=== PATIENT | female | born 1980 | race Caucasian/White ===

== ENCOUNTER 2017-05-13 22:59 | Emergency (ER) | payer BC ==
[~2017-05-13] VITALS: Ht 166.4 cm; Wt 87.0 kg
[2017-05-13 23:08] VITALS: TEMP 36.4; Ht 166.4 cm; Wt 87.0 kg
[2017-05-13 23:22] VITALS: O2SAT 100
[2017-05-13 23:37] LABS: HEMATOCRIT 38.7 % (37-47); MEAN CELL VOLUME 91.5 fL (80-100); MEAN CORPUSCULAR HEMOGLOBIN 31.4 pg (25-34); MEAN CORPUSCULAR HGB CONC 34.4 g/dl (32-36); MEAN PLATELET VOLUME 9.8 fL (7.4-10.4); PLATELET COUNT 252 K/uL (130-400); RED BLOOD COUNT 4.23 M/uL (4.2-5.4)
[2017-05-13 23:51] LABS: PROTHROMBIN TIME (PATIENT) 10.9 SECONDS (9.0-12.0)
[2017-05-13] MEDS ORDERED: KETOROLAC TROMETHAMINE 30 MG/ML VIAL IV STA (23:52)
[2017-05-14 00:08] LABS: ALT/SGPT 50 U/L (12-78); BLOOD UREA NITROGEN 11 mg/dl (7-18); CALCIUM 8.8 mg/dl (8.5-10.1); CARBON DIOXIDE 28 mmol/L (21-32); CHLORIDE 104 mmol/L (98-107); CREATININE 0.94 mg/dl (0.60-1.20); GLUCOSE 108 mg/dl (70-99); POTASSIUM 3.7 mmol/L (3.5-5.1); SODIUM 138 mmol/L (136-145)
[2017-05-14 00:13] LABS: ALB/GLOB RATIO 1.2 (0.9-2); ALKALINE PHOSPHATASE 93 U/L (45-117); AST/SGOT 36 U/L (15-37)
[2017-05-14] MEDS ORDERED: CYCLOBENZAPRINE HCL 10 MG TAB PO STA (01:11)
--- NOTE | 2017-05-14 02:34 | EMERGENCY ROOM VISIT NOTE ---
History Report prepared by Mally: Richelle Grubbs Under the Supervision of: Dr. Danni Sterling D.O. First contact with patient: 23:34 Chief Complaint: CHEST PAIN Stated Complaint: STERNUM/RIB/CHEST PAIN- EXCERCISE INJURY FROM TUE? Nursing Triage Summary: pt was lifting weights on Tuesday morning and felt a "pop" under her R breast towards her sternum. pt states she has been having pain since. has chronic back pain and cannot tell if it's her back pain or if its her chest pain that is making the back hurt more as well. pt took ibuprofen tonight with no relief of symptoms. pt states she traveled greater than 3 hours on Tuesday for [employer], no control and does not smoke. no medical complications and does not take any medications. difficulty with taking a deep breath and feels short of breath at rest as well. History of Present Illness The patient is a 37 year old female who presents to the Emergency Room with complaints of persistent chest pain starting 2 days ago. The patient regularly does cross fit. Two days ago she was doing back squats. She was trying to push herself to squat with a heavier weight than usual. She went down into the squat and she felt something pop in the middle of her chest. She did not have any pain at first and just felt a discomfort like she had to crack her back. She has not felt any more pops in her chest since. Her muscles have felt sore. She was not working the muscles in her upper body that day. Since then, she has had some mid chest pain at times. She notices the pain most with movement. She has been taking Advil for her chest pain. She last took Advil at 1730. She states that the pain is not that severe and she is able to get through the day normally. She traveled 4 hours by car from [place] later that day. She started having some SOB upon arriving in [place]. She thinks that the cold air worsens her SOB. She is unsure if the pain goes into her back. She denies any change in bowel movement, urinary symptoms, leg swelling, cough, or cold symptoms. She denies any family history of heart or lung problems. She denies any history of asthma or reactive airway disease. She is not on control. Source of History: patient Onset: 2 days ago Position: chest Quality: other (pain) Timing: other (persistent) Modifying Factors (Worsening): movement Associated Symptoms: + SOB, No cough, No urinary symptoms Note: Pt denies cold symptoms, leg swelling, change in bowel movement. Review of Systems See HPI for pertinent positives & negatives. A total of 10 systems reviewed and were otherwise negative. Past Medical & Surgical Medical Problems: (1) No chronic problems Family History No pertinent family history stated. Social History Smoking Status: Never Smoker Marital Status: Current/Historical Medications No Active Prescriptions or Reported Meds Allergies Coded Allergies: No Known Allergies (Unverified , 05/13/17) Physical Exam Vital Signs Date Time Temp Pulse Resp B/P (MAP) Pulse Ox O2 Delivery O2 Flow Rate FiO2 05/14/17 03:03 63 18 131/80 99 05/14/17 01:37 64 17 117/79 98 Room Air 05/14/17 00:26 56 19 137/84 98 Room Air 05/13/17 23:24 100 Room Air 05/13/17 23:22 100 Room Air 05/13/17 23:08 36.4 64 18 143/83 100 Room Air Physical Exam GENERAL: alert, well appearing, well nourished, no distress, non-toxic EYE EXAM: normal conjunctiva, PERRL and EOM's grossly intact OROPHARYNX: no exudate, no erythema, lips, buccal mucosa, and tongue normal and mucous membranes are moist NECK: supple, no nuchal rigidity, no adenopathy, non-tender CHEST: Reproducible chest pain along bilateral sternal borders. LUNGS: Clear to auscultation. Normal chest wall mechanics HEART: no murmurs, S1 normal and S2 normal ABDOMEN: abdomen soft, non-tender, normo-active bowel sounds, no masses, no rebound or guarding. BACK: Back is symmetrical on inspection and there is no deformity, no midline tenderness, no CVA tenderness. SKIN: no rashes and no bruising UPPER EXTREMITIES: upper extremities are grossly normal. LOWER EXTREMITIES: No pitting edema. NEURO EXAM: Normal sensorium, cranial nerves II-XII grossly intact, normal speech, no gross weakness of arms, no gross weakness of legs. Medical Decision & Procedures ER Provider Diagnostic Interpretation: X-ray: I interpreted the following studies. Chest: A two view study of the chest was reviewed and was negative for cardiomegaly, focal infiltrate, effusion , pneumothorax, fracture, pulmonary edema, or wide mediastinum. Laboratory Results 05/13/17 23:25 05/13/17 23:25 Test 05/13/17 23:25 05/13/17 23:33 05/14/17 01:29 Red Blood Count 4.23 M/uL (4.2-5.4) Mean Corpuscular Volume 91.5 fL (80-100) Mean Corpuscular Hemoglobin 31.4 pg (25-34) Mean Corpuscular Hemoglobin Concent 34.4 g/dl (32-36) RDW Standard Deviation 43.2 fL (36.4-46.3) RDW Coefficient of Variation 12.9 % (11.5-14.5) Mean Platelet Volume 9.8 fL (7.4-10.4) Prothrombin Time 10.9 SECONDS (9.0-12.0) Prothromb Time International Ratio 1.0 (0.9-1.1) Activated Partial Thromboplast Time 26.7 SECONDS (21.0-31.0) Partial Thromboplastin Ratio 1.0 D-Dimer < 190 ug/L FEU (0-500) Anion Gap 6.0 mmol/L (3-11) Est Creatinine Clear Calc Drug Dose 89.3 ml/min Estimated GFR () 89.2 Estimated GFR (Non- 77.0 BUN/Creatinine Ratio 12.0 (10-20) Calcium Level 8.8 mg/dl (8.5-10.1) Total Bilirubin 0.3 mg/dl (0.2-1) Aspartate Amino Transf (AST/SGOT) 36 U/L (15-37) Alanine Aminotransferase (ALT/SGPT) 50 U/L (12-78) Alkaline Phosphatase 93 U/L (45-117) Total Creatine Kinase 88 U/L (26-192) Creatine Kinase MB 0.9 ng/ml (0.5-3.6) Creatine Kinase MB Ratio 1.0 (0-3.0) Total Protein 7.3 gm/dl (6.4-8.2) Albumin 3.9 gm/dl (3.4-5.0) Globulin 3.4 gm/dl (2.5-4.0) Albumin/Globulin Ratio 1.2 (0.9-2) Bedside Troponin I 0.050 ng/ml (0-0.045) Troponin I < 0.015 ng/ml (0-0.045) Laboratory results per my review. Medications Administered Medications (Trade) Dose Ordered Sig/Lluvia Route Start Time Stop Time Status Last Admin Dose Admin Ketorolac Tromethamine (Toradol Inj) 30 mg NOW STAT IV 05/13/17 23:52 05/13/17 23:54 DC 05/14/17 00:24 30 MG Cyclobenzaprine HCl (Flexeril Tab) 5 mg NOW STAT PO 05/14/17 01:11 05/14/17 01:24 DC 05/14/17 01:37 5 MG ECG Indication: chest pain Rate (beats per minute): 63 Rhythm: sinus rhythm Findings: T-wave inversion (lead 3), other (normal axis, normal intervals, no other acute ischemic changes) ED Course 2338: The patient was evaluated in room B12B. A complete history and physical exam was performed. 2352: Toradol Inj 30 mg IV. 0111: Flexeril Tab 5 mg PO. 0112: I reevaluated the patient. I updated her on the results. 0243: Upon reevaluation, the patient is feeling better. I discussed the findings and the treatment plan with the patient. She verbalizes agreement and understanding. She was discharged home. Medical Decision Differential diagnoses includes but is not limited to acute coronary syndrome, myocardial infarction, pericarditis, pulmonary embolus, aortic dissection, pneumonia, pneumothorax, musculoskeletal, shingles, esophageal. Patient well-appearing here despite complaints, vital signs stable. Given description of prior possible injury while exercising, more likely pain musculoskeletal in origin. I feel complaints of shortness of breath upon arrival in [facility] may have been a component of cold weather induced bronchospasm versus anxiety about her persistent pain. Patient's d-dimer negative. Initial [id number] troponin was slightly abnormal, however I feel this is in error as the lab troponin was negative. This was repeated as a precaution several hours later and continue to be negative. All other labs and imaging reassuring. Patient with only minimal improvement following medications, but felt reassured and was comfortable going home. Patient given copies of her labs to take to her family doctor, discussed close follow-up with family doctor as a precaution, avoidance of any upper body lifting or activity until she is feeling better, treatment of pain at home, symptoms to watch and return for, she verbalized understanding was agreeable with plan. Doubt cardiac etiology, vascular etiology, occult infectious etiology, pneumothorax. Medication Reconcilliation Current Medication List: was personally reviewed by me Blood Pressure Screening Patient's blood pressure: Elevated blood pressure Blood pressure disposition: Elevated BP felt to be situational Impression Primary Impression: Chest wall pain Scribe Attestation The scribe's documentation has been prepared under my direction and personally reviewed by me in its entirety. I confirm that the note above accurately reflects all work, treatment, procedures, and medical decision making performed by me. Departure Information Dispostion Home / Self-Care Prescriptions No Active Prescriptions or Reported Meds Referrals No Doctor, Assigned (PCP) Patient Instructions [facility] Additional Instructions Please avoid any heavy lifting or strenuous activity until you are feeling better. You may use tylenol and ibuprofen as needed for pain. Do not take ibuprofen on an empty stomach and drink plenty of water. If you have any worsening pain, trouble breathing, fevers, vomiting, dizziness, or you have any other new concerns, please return to the emergency room.
[2017-05-14 03:03] VITALS: BP 131/80; PULSE 63; O2SAT 99
--- NOTE | 2017-05-14 08:49 | DIAGNOSTIC IMAGING REPORT ---
CHEST ONE VIEW PORTABLE CLINICAL HISTORY: Chest pain after weightlifting. COMPARISON STUDY: No previous studies for comparison. FINDINGS: Lung volumes are normal. Lungs are clear. No pneumothorax or pleural effusion is noted. Cardiomediastinal silhouette is normal. Pulmonary vascularity is normal. IMPRESSION: No acute cardiopulmonary findings. Electronically signed by: Branden Zhu M.D. 05/14/2017 8:48 AM Dictated Date/Time: 05/14/2017 8:47 AM
== END 2017-05-14 03:05 | disposition home or self-care (01) ==
LOC: C.EDB 23:02
DX: R07.89 Other chest pain (principal)